=== PATIENT | female | born 1970 | race Caucasian/White ===

== ENCOUNTER 2022-08-19 14:06 | Outpatient (CLI) | payer OTHER, SELFPAY ==
--- NOTE | 2022-08-19 15:00 | CRLHL7_ITS ---
For Patients: As a result of the Century Cures Act, medical imaging exams and procedure reports are released immediately into your electronic medical record. You may view this report before your referring provider. If you have questions, please contact your health care provider. INDICATION: Pelvic mass. TECHNIQUE: CT abdomen and pelvis acquired with intravenous contrast, 81 mL of Isovue 370. Coronal and sagittal reformats. COMPARISON: None available. FINDINGS: The imaged lower chest appears unremarkable. - Normal liver contour. No suspicious hepatic lesion. The portal veins are patent. No biliary dilatation. The gallbladder, pancreas, spleen, and adrenals are unremarkable. - Symmetric renal enhancement. No hydronephrosis bilaterally. Unremarkable urinary bladder. Retroflexed uterus containing a heterogeneous noncalcified fundal mass measuring up to 8.5 cm (series 5, image 56). - Mild colonic diverticulosis without acute inflammatory changes. Nondilated small bowel. Normal appendix. - No free air, free fluid, focal collection, or lymphadenopathy. Normal caliber abdominal aorta. No suspicious osseous lesion. IMPRESSION: 1. Retroverted uterus containing a heterogeneous noncalcified 8.5 cm fundal mass, most likely a large fibroid. 2. No lymphadenopathy or acute findings. Please note that all CT scans at this facility use dose modulation, iterative reconstruction, and/or weight-based dosing when appropriate to reduce radiation dose to as low as reasonably achievable. Dictated by Jose Toro MD @ 08/21/2022 1:16:38 PM (Electronically Signed)
--- NOTE | 2022-08-19 16:00 | CRLHL7_ITS ---
For Patients: As a result of the Century Cures Act, medical imaging exams and procedure reports are released immediately into your electronic medical record. You may view this report before your referring provider. If you have questions, please contact your health care provider. INDICATION: Known fibroids. Increased pelvic pressure COMPARISON: CT 08/19/2022 TECHNIQUE: 2D hahn scale and color Doppler images were acquired of the pelvis using a transabdominal and transvaginal approach. FINDINGS: There is a large hypoechoic fibroid involving the right upper uterus which displaces the endometrium to the left. This fibroid distorts the contour of the uterus and measures 6.8 x 5.1 x 6.5 cm. A smaller right-sided lower uterine segment fibroid is present measuring 1.7 x 1.1 x 1.8 cm. Uterus measures 11.7 cm in length by 8.2 cm in AP diameter by 8.9 cm in transverse dimension. The endometrial lining measures 4 millimeters. The ovaries are not visualized. There are no suspicious fluid collections within the cul-de-sac. IMPRESSION: Large right-sided fibroid measuring 6.8 cm. This displaces the endometrial stripe to the left. Smaller right-sided lower uterine segment fibroid measuring 1.8 cm. Dictated by Jordan Fernandez MD @ 08/22/2022 10:46:45 AM (Electronically Signed)
== END 2022-08-19 14:07 | disposition home or self-care (01) ==
PROVIDERS: PCP Family Medicine; Visit Provider Obstetrics & Gynecology
DX: R19.00 Intra-abdominal and pelvic swelling, mass and lump, unspecified site (principal); D25.9 Leiomyoma of uterus, unspecified
CPT/HCPCS: 74177; 76830; 76856; Q9967

== ENCOUNTER 2022-10-20 07:06 | Inpatient (IN) | payer OTHER, SELFPAY ==
[2022-10-20] VITALS (32 sets, daily range): BP systolic 92–146; BP diastolic 53–97; PULSE 44–81; RESP 12–23; TEMP 35.5–37.4; O2SAT 91–100; BMI 28.3
[2022-10-20] MEDS: LACTATED RINGERS 1000 ML 1,000 ML 100 ML IV ×3 (07:25→11:30)
[2022-10-20] MEDS: SODIUM CHLORIDE 0.9 % (FLUSH) 10 ML SYRINGE IVF (07:25)
[2022-10-20 07:44] LABS: Ur HCG Qualitative* Negative (Negative)
[2022-10-20 07:47] LABS: Hemoglobin* 13.5 gm/dL (12.0-16.0)
[2022-10-20 08:04] LABS: Creatinine* 0.8 mg/dL (0.5-1.5); Est. Creatinine Clearance* 69.42; Estimated Glomerular Filt Rate 88 ml/min
--- NOTE | 2022-10-20 08:31 | W.ANESCHARGE ---
Anesthesia Charges Start Date/Time Anesthesia Start Date: 10/20/22 Anesthesia Start Time: 08:52 Stop Date/Time Anesthesia Stop Date: 10/20/22 Anesthesia Stop Time: 11:46
[2022-10-20] MEDS: CEFAZOLIN 2 GM INJ IVP (09:14)
--- NOTE | 2022-10-20 09:19 | P.NB_ITS ---
Nerve Block Nerve Block Time Seen by Provider: 09:08 Date Seen: 10/20/22 Type of block requested by surgeon for post-operative analgesia: TAP Side: bilateral Time out performed: Yes Verification of patient name: Yes Verification of date of : Yes Site marking: site marked Name of person performing procedure: Sanjay Darling, if any: Tj Continuous monitoring Was continuous monitoring of O2 sat, B/P, cardiac catheterization technologist, recorded every 15 minutes?: Yes Procedure Checklist: sterile prep, needles and gloves Ultrasound guided. Images saved: Yes Medications given in 5ml increments after negative aspiration: Marcaine %: 0.25 mL: 30 Needle gauge: 20 and Exparel mL: 10 Patient tolerated procedure well: Yes Additional comments: Needle noted adjacent to nerve Block Charges Block Charge (with Pro Fee): TAP Bilateral Use of Ultrasound Machine for Block: Yes- US Guidance/pain block
--- NOTE | 2022-10-20 11:40 | PM.GYNPRHY ---
Procedure Type of Hysterectomy: Total Abdominal Pre-op/Post-op diagnoses: Pre-Op/Post-Op Diagnoses Operation Date: 10/20/22 08:40 <No data on this case meets the specified criteria> Procedure: Procedures Operation Date: 10/20/22 08:40 Actual Procedure Side Surgeon p Open Abdominal Hysterectomy, Bilateral Salpingectomy,cystoscopy Yeny Stevens MD Spool Maker: Heide Mondragon Estimated blood loss (mL): 50 Anesthesia type: General Complications: none Fluids: crystalloid Fluid amount (mL): 2,000 Urine output (mL): 400 Weight of Uterus: 329 lb Specimen: uterus, left tube and right tube Disposition: PACU Narrative: DATE: 10/20/2022 PREOPERATIVE DIAGNOSIS: 52-year-old with known large fibroid uterus causing pelvic pain POSTOPERATIVE DIAGNOSIS: Same. NAME OF PROCEDURE: Total abdominal hysterectomy. Bilateral salpingectomies. SURGEON: Yeny Stevens MD MANAGER OF APPLICATIONS DEVELOPMENT: Heide Mondragon MD. ANESTHESIA: General endotracheal COMPLICATIONS: None ESTIMATED BLOOD LOSS: 50 ml URINE OUTPUT: 400 mL clear urine at the end of the procedure IV FLUID: 2000 mL DRAINS: Eason to gravity. FINDINGS: Filmy adhesions of peritoneum to the rectus fascia. Fibroid uterus noted. Adhesions of the bladder to being lower uterine segment. Normal bilateral fallopian tubes and ovaries. Normal appendix noted. PROCEDURE: After obtaining informed consent, the patient was taken to the operating room where general anesthesia was obtained without difficulty. She was prepared and draped in the normal sterile fashion in the dorsal supine position. A Eason catheter was inserted sterilely into the bladder. A midline vertical incision was made with a scalpel. This is the same incision as her previous delivery. This incision was carried down to the underlying layer of fascia with the Bovie. The fascia was incised in the midline and the incision extended laterally. The superior and inferior aspects of the fascial incision were grasped with Venkata clamps and the underlying rectus muscles dissected off sharply. The rectus muscles were in the midline. The underlying peritoneum was identified and entered sharply with Metzenbaum scissors. The peritoneal incision was extended superiorly and inferiorly with good visualization of the bladder. The patient was placed in some mild Trendelenburg positioning. The bowels were packed cephalad using a large moistened laparotomy sponge. The Khalif O retractor was placed in the incision. This provided excellent visualization of the pelvis. The pelvis was inspected with the findings noted above. Bilateral salpingectomy was performed 1st with the Impact LigaSure. [place] clamps were placed at the cornua bilaterally for traction. Both ureters were identified along their courses within the pelvic sidewall by palpation, patient body habitus made limited visualization. The right round ligament was doubly clamped with Venkata clamps, transected, and suture ligated with 0 Vicryl. The anterior leaf of the broad ligament was opened to the midline from the right side. Down to the level of the cervix. The right ovarian ligament was then isolated, clamped across with 2 Priscila clamps, transected, and doubly suture ligated with 0 Vicryl. Hemostasis was observed. The uterine vessels were skeletonized on the left side. The vessels were clamped across with a Priscila and a straight clamp, transected, and suture ligated. Excellent hemostasis was obtained. Attention was then turned to the right side. The left round ligament was clamped with 2 Venkata clamps, transected, and suture ligated with 0-Vicryl. The anterior leaf of the broad ligament was opened from the left side to the midline. The bladder flap was then created bluntly. The bladder was further pushed caudally with sharp and blunt dissection. The left ovarian ligament was clamped with 2 Priscila clamps, transected, and doubly suture ligated with 0-Vicryl. Hemostasis was visualized. The left uterine vessels were skeletonized and then clamped across with Priscila clamps, transected, and suture ligated. Excellent hemostasis was obtained. The remaining cardinal and uterosacral ligament attachments on both sides were clamped with straight Priscila clamps adjacent to the lower uterine segment and cervix, transected and suture ligated with 0 Vicryl. Excellent hemostasis was obtained. Two Priscila clamps were placed across the vaginal cuff angles. The uterus with attached cervix was then transected and passed off the field. The vaginal cuff angles were fixed with Priscila stitches of 0 Vicryl. The intervening vaginal cuff was closed with [id number] sutures of 0 Vicryl. The abdomen and pelvis were then copiously irrigated. Small bleeding vessels were isolated with DeBakey clamps and cauterized for hemostasis. All laparotomy sponges and instruments were then removed. The subfascial tissues were carefully inspected and hemostasis assured. The fascia was re-approximated in a running fashion with an 0 PDS suture. The subcutaneous tissues were copiously irrigated and hemostasis assured. The subcutaneous adipose layer was re-approximated in 1 layers 3-0 Vicryl in a running manner. The skin was closed in a subcuticular fashion with 4-0 Monocryl. A silver dressing was applied. A diagnostic cystoscopy was performed using normal saline as the insufflation medium. The dome of the bladder was noted to be without injury and no evidence of any sutures from the vaginal cuff causing injury. Normal urine flow was noted through both ureteral orifices. Fluorescein IV was used to visualize the urine more easily. The Eason catheter was then replaced. The patient tolerated the procedure well. Sponge, lap, needle, instrument counts were reported as correct x2. The patient was taken to recovery room awake and in stable condition. She received 2 g of IV Ancef preoperatively. The uterus was weighed at the conclusion of the procedure, weight was 329 g in the operating room. PATHOLOGY SPECIMEN(S): Uterus, cervix, left fallopian tube, right fallopian tubes.
--- NOTE | 2022-10-20 11:45 | W.ANESCHARGE ---
Anesthesia Charges Start Date/Time Anesthesia Start Date: 10/20/22 Anesthesia Start Time: 08:52 Stop Date/Time Anesthesia Stop Date: 10/20/22 Anesthesia Stop Time: 11:46
[2022-10-20] MEDS: ONDANSETRON 2 MG/ML inj 4 MG IVP (12:06)
[2022-10-20] MEDS: fentaNYL 100 MCG/2 ML inj 50 MCG IVP (12:23)
--- NOTE | 2022-10-20 12:59 | SUR.PHASEI ---
patient met discharge criteria per anesthesia
[2022-10-20] MEDS: LACTATED RINGERS 1000 ML 1,000 ML 35 ML IV (13:15)
[2022-10-20] MEDS: KETOROLAC 30 MG/ML inj IVP ×2 (14:33→20:40)
[2022-10-20] MEDS: METOCLOPRAMIDE HCL 5 MG/ML INJ 10 MG IVP (14:47)
[2022-10-20] MEDS: HYDROmorphone 0.5 mg/0.5 ml inj IVP (15:42)
[2022-10-20] MEDS: LACTATED RINGERS 1000 ML 1,000 ML 125 ML IV (18:06)
[2022-10-20] MEDS: ACETAMINOPHEN 325 MG TABLET 650 MG PO (19:34)
[2022-10-20] MEDS: SIMETHICONE 80 MG TAB.CHEW 160 MG PO (22:51)
[2022-10-21 00:43] VITALS: BP 113/67; PULSE 69; RESP 16; TEMP 37.2; O2SAT 94
[2022-10-21 01:55] VITALS: BP 116/74; PULSE 68; RESP 16; TEMP 37.5; O2SAT 96
[2022-10-21 02:45] VITALS: BP 119/75; PULSE 67; RESP 16; TEMP 37.4; O2SAT 95
[2022-10-21] MEDS: KETOROLAC 30 MG/ML inj IVP ×2 (02:46→08:37)
[2022-10-21 05:23] LABS: Hemoglobin* 12.9 gm/dL (12.0-16.0)
[2022-10-21 05:39] LABS: Creatinine* 0.7 mg/dL (0.5-1.5); Est. Creatinine Clearance* 79.34; Estimated Glomerular Filt Rate 103 ml/min
[2022-10-21 09:59] VITALS: BP 118/77; PULSE 85; RESP 18; TEMP 37.3
--- NOTE | 2022-10-21 12:52 | P.DS_ITS ---
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 Indication for surgery: Symptomatic fibroid uterus causing abnormal uterine bleeding and constipation. Intraoperative findings were notable for filmy adhesions of peritoneum to the rectus fascia.? Fibroid uterus noted.? Adhesions of the bladder to being lower uterine segment.? Normal bilateral fallopian tubes and ovaries.? Normal appendix noted. She had an uncomplicated surgery. Postoperative course has been uneventful. Vitals have been stable. She has remained afebrile. Hgb 13.5--> 12.9. Today, on postoperative day 1. she reports the pain is well controlled. She has been able to ambulate without difficulty. She is tolerating regular diet. She is passing flatus. Gonzalez catheter has been removed, and she is voiding without difficulty. Time Spent with Patient Time attestation: Total time spent providing and/or coordinating discharge services: Time spent: Less than 30 minutes HOUSEKEEPER/LAUNDRY ASSISTANT - Exam Physical Exam: Vital signs: Temp Pulse Resp BP Pulse Ox O2 Del Method O2 Flow Rate 99.2 F 85 18 118/77 95 Room Air 0.5 10/21/22 09:59 10/21/22 09:59 10/21/22 09:59 10/21/22 09:59 10/21/22 02:45 10/21/22 02:45 10/20/22 15:54 Narrative: Physical exam: General: No acute distress. On chair Psych: Alert and oriented x3, full affect HEENT: Normocephalic, atraumatic Lungs: Unlabored breathing Abdomen: Abdominal dressing in place with with no signs of bleeding or surrounding erythema. Soft, appropriate tenderness on palpation, no rebound, or guarding, no masses. Skin: No lesions or rashes Lower extremities: No edema or erythema Pelvic exam: Deferred. Report no vaginal bleeding. HOUSEKEEPER/LAUNDRY ASSISTANT - DS: Data Data Completed and Pending Labs on day of discharge: Labs from last 24 hours 10/21/22 05:15 Hgb 12.9 Creatinine 0.7 Estimated Creat Clear 79.34 Estimated GFR 103 Procedures Procedures: Procedures Operation Date: 10/20/22 08:40 Actual Procedure Side Surgeon p Open Abdominal Hysterectomy, Bilateral Salpingectomy,cystoscopy Yeny Stevens MD Complications: none Discharge Plan Discharge Disposition: Home, Self-Care Date of Admission: 10/20/22 07:06 Attending Provider on Discharge: Yeny Stevens MD Primary Care Provider: Leonora Madison Condition: Stable Anticipated Discharge Date/Time: 10/21/22 12:44 Discharge Medications: New acetaminophen 325 mg Tablet 650 mg PO Q4H PRN (Reason: minor pain) 30 Days Qty: 120 0RF docusate sodium 100 mg Capsule 100 mg PO BID PRN (Reason: Constipation) 30 Days Qty: 60 0RF ibuprofen 600 mg Tablet 600 mg PO Q6H 30 Days Qty: 120 0RF simethicone 80 mg Tablet,Chewable 160 mg PO Q4H PRN (Reason: gas) 30 Days Qty: 60 0RF oxycodone 5 mg Tablet 5 mg PO Q4H PRN (Reason: Moderate Pain) 14 Days Qty: 20 0RF No Action No Known Home Medications Discharge Orders: Discharge Order (Routine); Ordered 10/21/22 Ordered By: Yeny Stevens Patient Education: Hysterectomy (DC) Follow Up Appointments: Leonora Madison MD [Primary Care Provider] - Yeny Stevens MD [Staff Physician] - Forms: [facility] Info Instructions Discharge Comments: Total Abdominal Hysterectomy POSTOPERATIVE INSTRUCTIONS ACTIVITY No heavy lifting/pushing/pulling for 4-6 weeks. Do not lift anything more than about 5-10 lbs (such as laundry, groceries, children, pets), vacuum, push heavy doors or grocery carts, etc. You may climb stairs as tolerated. Do not put anything in the vagina for 6-8 weeks after surgery unless otherwise instructed by your doctor (including tampons, douching, sexual intercourse, etc). No driving for about 2 weeks after surgery, while you are taking narcotic pain medication, or until you feel that you are ready. Practice checking your blind spot and stepping hard on the brake. Avoid sitting or lying in bed for more than 2 hours at a time while you are awake to reduce your risk of blood clots. You may return to work when directed by your physician. Please contact your doctor if you need any return to work letters or medical leave paperwork to be completed. WOUND CARE You will have one large incision on your abdomen. There will be dissolvable stitches under your skin that do not need to be removed. You can remove your dressing after 7 days or sooner if the seal is broken. Shower daily after surgery. Clean your incision with mild antibacterial soap and water. Pat your incision dry with a clean towel. No tub baths until wound is completely healed. Wash your hands frequently, especially before touching your incision, changing any dressings, after using the restroom, and before eating. PAIN MANAGEMENT Take your oral pain medication as needed. You should be taking Ibuprofen 600mg every 6 hours with 1 gram of Tylenol every 6 hours. You can take these together every six hours or alternate them every 3 hours. You should then take the oxycodone as needed if you have breakthrough pain on top of the Tylenol and Ibuprofen. Some pain medications can cause constipation so you should take a stool softener (i.e. colace) while you are on these medications. You may also take milk of magnesia or Miralax for constipation. WHAT TO EXPECT AT HOME Recovery from surgery is generally 4-6 weeks, but sometimes longer for more strenuous activity. It is normal to be very tired during this time. It is normal to have some drainage or a small amount of vaginal bleeding after surgery which may last up to 6 weeks. You may go home with a gonzalez catheter in your bladder. You will need to follow up for a nurse visit in 7-10 days for removal. You will most likely experience gas pain, abdominal swelling, or shoulder pain for 24-72 hours after surgery. This is from the carbon dioxide gas put into your abdomen to better visualize your organs. A warm shower, heating pad, and/or walking may help. WHEN TO CALL YOUR DOCTOR: Fever (>100.4?F or 38.0?C) or chills. Incision problems such as redness, warmth, swelling, or foul smelling drainage. Severe nausea or persistent vomiting. Bright red vaginal bleeding (soaking >1 pad/hour) or foul smelling vaginal drainage. Severe pain not relieved with pain medication. Pain and swelling in your legs, especially if it is only on one side and not the other. Pain with urination, cloudy urine, or foul smelling urine. Or if you have any other problems or questions. CALL 911 OR GO TO THE EMERGENCY ROOM IF YOU HAVE: Any shortness of breath, difficulty breathing, or chest pain.
[2022-10-21 13:15] VITALS: BP 130/80; PULSE 81; RESP 18; TEMP 36.8
== END 2022-10-21 13:20 | disposition home or self-care (01) | DRG 743 ==
PROVIDERS: Admitting Provider Obstetrics & Gynecology; PCP Family Medicine; Visit Provider Obstetrics & Gynecology
PROC: 0UT94ZZ Resection of Uterus, Percutaneous Endoscopic Approach (ICD-10-PCS; CPT 52000; principal; 2022-10-20 08:30)
DX: D25.9 Leiomyoma of uterus, unspecified (principal); R10.2 Pelvic and perineal pain; N93.8 Other specified abnormal uterine and vaginal bleeding; K59.00 Constipation, unspecified; N73.6 Female pelvic peritoneal adhesions (postinfective)
CPT/HCPCS: 00840; 36415; 76942; 81025; 82565; 85018; 86850; 86900; 86901; A9270; C9290; J0131; J0330; J0690; J1100; J1170; J1885; J2250; J2405; J2704; J2765; J3010; J3475; J3490; J7120

== ENCOUNTER 2024-02-29 08:30 | Outpatient (CLI) | payer OTHER, SELFPAY ==
--- OUTSIDE RECORDS SUMMARY | 2024-03-02 18:41 | XMS_ITS | Clinical Summary ---
Author Organization [employer] Address [place], [place] [address] Care Team Providers Care Fire Manager Name Role Phone Leonora Madison MD Primary Care Provide r Allergies No known active allergies Medications No known medications Active Problems Problem Noted Date Diagnosed Date Pap smear for cervical cancer screening 06/17/20 21 Overview: 06/2021 NIL/HPV negative Plan: Pap/HPV due 06/2026 Malignant melanoma of arm 05/09/2014 Immunizations Name Administration Dates Next Due Hepatitis B (Adult) 11/13/1992,05/19/1992,1991 Tdap 05/09/2014,07/10/2008 Family History Medical History Relation Name Comments Cancer Father melanoma Heart Disease Father Hyperlipidemia Father Cancer Mother melanoma Cancer-breast Mother Cancer-colon No Family History Cancer-prostate No Family History Relation Name Status Comments Father Mother Social History Tobacco Use Types Packs/Day Years Used Date Smoking Tobacco: Never Smokeless Tobacco: Never Tobacco Cessation:Counseling Given: Yes Alcohol Use Standard Drinks/Week Comments Yes 0 (1 standard drink = 0.6 oz pur e alcohol) not weekly PHQ-2 Answer Date Recorded PHQ-2 TOTAL SCORE 0 09/30/2022 Social Connections Answer Date Recorded Frequency of Communication with Friends and Fami ly Not on file 07/06/2021 Financial Resource Strain Answer Date R ecorded Difficulty of Paying Living Expenses Not on file 07/06/2021 Difficulty of Paying Living Expenses Not on file 07/06/2021 Sex and Gender Information Value Date Recorded Sex Assigned at Not on file Gender Identity Not on file Sexual Orientation Not on file Obstetrics History Para Term AB IAB SAB Ectopic Multiple Livin g Live Births 2 2 1 1 1 Date Outcome GA Total Labor Labor/2nd/3rd Weight Sex Type Anes PTL Nichole A1 A5 Name Clin Term Last Filed Vital Signs Vital Sign Reading Time Taken Comments Blood Pressure 126/87 09/30/2022 11:17 AM CDT Pulse 78 09/30/2022 11:17 AM CDT Temperature 39.1 ??C (102.3 ??F) 01/14/2011 11:28 AM CDT Respiratory Rate - - Oxygen Saturation 98% 09/30/2022 11:17 AM CDT Inhaled Oxygen Concentration - - Weight 74.7 kg (164 lb 9.6 oz) 09/30/2022 11:17 AM CDT Height 163.2 cm (5' 4.25) 09/30/2022 11:17 AM C DT Body Mass Index 28.03 09/30/2022 11:17 AM CDT Plan of Treatment Health Maintenance Due Date Last Done Comments HIV for age 15-65 09/26/1983 Hepatitis C screening for age 18-79 1986 Colonoscopy through age 75 2013 Zoster (shingles) series for age 50+ (1 of 2) 2018 Lipids for age 45-75 05/09/2019 05/09/2014 Mammogram for age 45-75 12/09/2020 12/10/19 20, 10/19/2018, 08/14/2017, Additional history exists COVID-19 vaccine series (2022- season) 2023 04/20/2021 BMI (ht and wt on same day) for age 18+ 10/01/2023 09/30/2022, 06/17/2021 Depression screening for age 12+ 10/01/2023 09/30/2022 Influenza for age 50-64 03/10/2024 Tetanus booster 05/09/2024 05/09/2014, 07/10/2008 Pap test for age 21-65 06/17/2026 , 06/17/2021, 05/09/2014 Tdap Completed 05/09/2014, 07/10/2008 Pneumococcal series for age 6-64 Aged Out No longer eligible based on patient's age to complete this topic Procedures Procedure Name Priority Date/Time Associated Diagnosis Comments HPV THIN PREP Routine 06/17/2021 10:30 AM VIOLIN REPAIRER Cervical cancer screening XR MAMMO BILAT SCREENING Routine 12/10/2019 11:52 AM CDT Visit for screening mammogram LIPID PANEL W REFLEX MEASURED LDL Routine 05/09/2014 12:02 PM CDT Screening, lipid from Last 3 Months or Most Recently Relevant to Health Maintenance Results * HPV HIGH RISK (06/17/2021 10:30 AM VIOLIN REPAIRER) TYPE 16 Negative Negative 06/21/2021 2:26 PM VIOLIN REPAIRER [facility] TYPE 18 Negative Negative 06/21/2021 2:26 PM VIOLIN REPAIRER [facility] OTHER HIGH RISK TYPES Negative Negative 06/21/2021 2:26 PM VIOLIN REPAIRER [facility] Other (Cervical) Non-Blood / Unknown 06/17/2021 10:30 AM VIOLIN REPAIRER 06/18/2021 8:02 AM VIOLIN REPAIRER Narrative [facility] - 06/21/2021 2:26 PM VIOLIN REPAIRER HPV types 16, 18, 31, 33, 35, 39, 45, 51, 52, 56, 58, 59, 66 and 68 DNA were undetectable or below the pre-set threshold. Methodology: [employer] 4800 HPV Test Leonora Madison MD [facility]OLOGY [facility] [address] [place] [address], * XR MAMMO BILAT SCREENING (12/10/2019 11:52 AM CDT) Anatomical Region Laterality Modality BREASTS, Breast Left, Breast Right Bilateral Mammography Impressions 12/10/2019 3:20 PM CDT ??There is no radiographic evidence for malignancy. ??Recommend annual mammograms. A lay language report of this examination will be provided to the patient. MAMMOGRAM ASSESSMENT: ??ACR 1 Negative Narrative 12/10/2019 3:20 PM CDT XR MAMMO BILAT SCREENING [[id number]] CLINICAL HISTORY: ??This is an asymptomatic 49 y.o. patient. INDICATION FOR EXAM: Mammogram Screening. TECHNIQUE: CC & MLO views were obtained. ??This digital study was evaluated with the assistance of Computer-Aided Detection. COMPARISON FILM: Yes 10/19/18 [facility] 08/14/17 [facility] FINDINGS: ??Mammographically, the breast tissue is heterogeneously dense, which could obscure detection of small masses. There are no dominant masses, suspicious micro calcifications or areas of architectural distortion. Leonora Madison MD MAMMO * (ABNORMAL) LIPID PANEL W REFLEX MEASURED LDL (05/09/2014 12:02 PM CDT) CHOLESTEROL,TOTAL 218(H) 100 - 199 mg/dL 05/09/2014 12:40 PM CDT [facility] TRIGLYCERIDES 100 <150 mg/dL 05/09/2014 12:40 PM CDT [facility] HDL CHOLESTEROL 59 >40 mg/dL 4 12:40 PM CDT [facility] NON-HDL CHOLESTEROL 159(H) <145 mg/dl 05/09/2014 12:40 PM CDT [facility] CHOL/HDL RATIO 3.69 <4.50 05/09/2014 12:40 PM CDT [facility] LDL CHOLESTEROL 139(H) <=130 mg/dL 05/09/2014 12:40 PM CDT [facility] PATIENT STATUS FASTING 05/09/2014 12:40 PM CDT [facility] Blood specimen (specimen) BLOOD SPECIMEN / Unknown Venipuncture / Unknown 05/09/2014 12:02 PM CDT 05/09/2014 12:02 PM CDT Leonora Madison MD CHEMISTRY [facility] [address] [place] [address], from Last 3 Months or Most Recently Relevant to Health Maintenance Care Teams Fire Manager Relationship Specialty Start Date End Date Leonora Madison MD [address] [place] [address] PCP - General 11/24/05
== END 2024-02-29 08:31 | disposition home or self-care (01) ==
LOC: NFLDREF 03-02 18:40
PROVIDERS: PCP Family Medicine; Referring Provider Family Medicine; Visit Provider Obstetrics & Gynecology
DX: Z00.00 Encounter for general adult medical examination without abnormal findings (principal); Z13.6 Encounter for screening for cardiovascular disorders
CPT/HCPCS: 80061

== ENCOUNTER 2024-04-23 16:51 | Outpatient (CLI) | payer OTHER, SELFPAY ==
--- OUTSIDE RECORDS SUMMARY | 2024-04-23 16:54 | XMS_ITS | Clinical Summary ---
Author Organization [facility] Address [place], [place] [address] Care Team Providers Care Website Programmer Name Role Phone Leonora Madison MD Primary Care Provide r Allergies No known active allergies Medications No known medications Active Problems Problem Noted Date Diagnosed Date Pap smear for cervical cancer screening 06/17/20 21 Overview (07/19/2021): 06/2021 NIL/HPV negative Plan: Pap/HPV due 06/2026 [...] 12/10/19 20, 10/19/2018, 08/14/2017, Additional history exists BMI (ht and wt on same day) for age 18+ 10/01/2023 09/30/2022, 06/17/2021 Depression screening for age 12+ 10/01/2023 09/30/2022 COVID-19 vaccine series ( season) 2024 04/20/2021 Influenza for age 50-64 03/10/2024 Tetanus booster 05/09/2024 05/09/2014, 07/10/2008 Pap test for age 21-65 06/17/2026 , 06/17/2021, 05/09/2014 Tdap Completed 05/09/2014, 07/10/2008 Pneumococcal series for age 6-64 Aged Out No longer eligible based on patient's age to complete this topic Procedures Procedure Name Priority Date/Time Associated Diagnosis Comments HPV HIGH RISK Routine 06/17/2021 10:30 AM 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 REVIEWER Cervical cancer screening XR MAMMO BILAT SCREENING Routine 12/10/2019 11:52 AM CDT Visit for screening mammogram LIPID PANEL W REFLEX MEASURED LDL Routine 05/09/2014 12:02 PM CDT Screening, lipid from Last 3 Months or Most Recently Relevant to Health Maintenance Results * HPV HIGH RISK (06/17/2021 10:30 AM UTILIZATION REVIEWER) TYPE 16 Negative Negative 06/21/2021 2:26 PM UTILIZATION REVIEWER [facility] TYPE 18 Negative Negative 06/21/2021 2:26 PM UTILIZATION REVIEWER [facility] OTHER HIGH RISK TYPES Negative Negative 06/21/2021 2:26 PM UTILIZATION REVIEWER [facility] Other (Cervical) Non-Blood / Unknown 06/17/2021 10:30 AM UTILIZATION REVIEWER 06/18/2021 8:02 AM UTILIZATION REVIEWER Narrative [facility] - 06/21/2021 2:26 PM UTILIZATION REVIEWER HPV types 16, 18, 31, 33, 35, 39, 45, 51, 52, 56, 58, 59, 66 and 68 DNA were undetectable or below the pre-set threshold. Methodology: Tano Nando 4800 HPV Test Leonora Madison MD MICROBIOLOGY [facility] [address] [place] [address], * XR MAMMO BILAT SCREENING (12/10/2019 11:52 AM CDT) Anatomical Region Laterality Modality BREASTS, Breast Left, Breast Right Bilateral Mammography Impressions 12/10/2019 3:20 PM CDT ??There is no radiographic evidence for malignancy. ??Recommend annual mammograms. A lay language report of this examination will be provided to the patient. MAMMOGRAM ASSESSMENT: ??ACR 1 Negative Narrative 12/10/2019 3:20 PM CDT XR MAMMO BILAT SCREENING [[id number]] CLINICAL HISTORY: ??This is an asymptomatic 49 y.o. patient. INDICATION FOR EXAM: Mammogram Screening. TECHNIQUE: CC & MLO views were obtained. ??This digital study was evaluated with the assistance of Computer-Aided Detection. COMPARISON FILM: Yes 10/19/18 [facility] 08/14/17 [facility] FINDINGS: ??Mammographically, the breast tissue is heterogeneously dense, which could obscure detection of small masses. There are no dominant masses, suspicious micro calcifications or areas of architectural distortion. Leonora Madison MD MAMMO * (ABNORMAL) LIPID PANEL W REFLEX MEASURED LDL (05/09/2014 12:02 PM CDT) CHOLESTEROL,TOTAL 218(H) 100 - 199 mg/dL 05/09/2014 12:40 PM CDT [facility] TRIGLYCERIDES 100 <150 mg/dL 05/09/2014 12:40 PM CDT [facility] HDL CHOLESTEROL 59 >40 mg/dL 4 12:40 PM CDT [facility] NON-HDL CHOLESTEROL 159(H) <145 mg/dl 05/09/2014 12:40 PM CDT [facility] CHOL/HDL RATIO 3.69 <4.50 05/09/2014 12:40 PM CDT [facility] LDL CHOLESTEROL 139(H) <=130 mg/dL 05/09/2014 12:40 PM CDT [facility] PATIENT STATUS FASTING 05/09/2014 12:40 PM CDT [facility] Blood specimen (specimen) BLOOD SPECIMEN / Unknown Venipuncture / Unknown 05/09/2014 12:02 PM CDT 05/09/2014 12:02 PM CDT Leonora Madison MD CHEMISTRY [facility] [address] [place] [address], [place] [phone] from Last 3 Months or Most Recently Relevant to Health Maintenance Care Teams Website Programmer Relationship Specialty Start Date End Date Leonora Madison MD [address] [place] [address] [facility] - General 11/24/05
--- NOTE | 2024-04-23 17:00 | CRLHL7_ITS ---
For Patients: As a result of the Century Cures Act, medical imaging exams and procedure reports are released immediately into your electronic medical record. You may view this report before your referring provider. If you have questions, please contact your health care provider. BILATERAL SCREENING MAMMOGRAM WITH COMPUTER-AIDED DETECTION AND TOMOSYNTHESIS TECHNIQUE: CC and MLO views were obtained. These mammographic images have been obtained using full-field digital technique. These mammographic images were interpreted with the benefit of computer-aided detection. Breast Tomosynthesis was used in this interpretation. COMPARISON FILM: 12/10/19, 10/19/18, 05/16/14. FINDINGS: There are scattered areas of fibroglandular density. IMPRESSION: There is no radiographic evidence for malignancy. ASSESSMENT: BI-RADS Category 1: Negative RECOMMENDATION: Routine screening mammogram in 1 year. A lay language report of this examination will be provided to the patient. Jordan Fernandez M.D. Diagnostic Radiologist [email or web address] SP/Dictated by: Jordan Fernandez MD @ 04/30/2024 11:58:00 AM (Electronically Signed)
== END 2024-04-23 16:52 | disposition home or self-care (01) ==
PROVIDERS: PCP Family Medicine; Visit Provider Obstetrics & Gynecology
DX: Z12.31 Encounter for screening mammogram for malignant neoplasm of breast (principal)
CPT/HCPCS: 77063; 77067

== ENCOUNTER 2024-05-13 06:30 | Outpatient (CLI) | payer OTHER, SELFPAY ==
--- OUTSIDE RECORDS SUMMARY | 2024-05-13 06:32 | XMS_ITS | Clinical Summary ---
Author Organization [email or web address] [facility] Address [place], [place] [address] Care Team Providers Care Cable Television Access Coordinator Name Role Phone Leonora Madison MD Primary Care Provide r Allergies No known active allergies Medications No known medications Active Problems Problem Noted Date Diagnosed Date Pap smear for cervical cancer screening 06/17/20 21 Overview (07/19/2021): 06/2021 NIL/HPV negative Plan: Pap/HPV due 06/2026 Malignant melanoma of arm 05/09/2014 Encounters Date Type Department Care Team Description 04/23/2024 Orders Only [facility] Scanner 1 scan: (1-Ord) [facility], BILAT SCREENING WITH CAD AND SONIYA, 04/23/2024 from Last 3 Months Immunizations Name Administration Dates Next Due Hepatitis [...] 2018 Lipids for age 45-75 05/09/2019 05/09/2014 BMI (ht and wt on same day) for age 18+ 10/01/2023 09/30/2022, 06/17/2021 Depression screening for age 12+ 10/01/2023 09/30/2022 COVID-19 vaccine series ( season) 2024 04/20/2021 Influenza for age 50-64 03/10/2024 Tetanus booster 05/09/2024 05/09/2014, 07/10/2008 Mammogram for age 45-75 04/23/2025 04/23/20 24, 12/10/2019, 10/19/2018, Additional history exists Pap test for age 21-65 06/17/2026 , 06/17/2021, 05/09/2014 Tdap Completed 05/09/2014, 07/10/2008 Pneumococcal series for age 6-64 Aged Out No longer eligible based on patient's age to complete this topic Procedures Procedure Name Priority Date/Time Associated Diagnosis Comments SCAN-MAMMOGRAPHY REPORT 04/23/2024 12:00 AM CDT HPV HIGH RISK Routine 06/17/2021 10:30 AM 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 Cervical cancer screening LIPID PANEL W REFLEX MEASURED LDL Routine 05/09/2014 12:02 PM CDT Screening, lipid from Last 3 Months or Most Recently Relevant to Health Maintenance Results * SCAN-MAMMOGRAPHY REPORT (04/23/2024 12:00 AM CDT) Anatomical Region Laterality Modality Other Scanner OTHER * HPV HIGH RISK (06/17/2021 10:30 AM 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) TYPE 16 Negative Negative 06/21/2021 2:26 PM 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 [facility] TYPE 18 Negative Negative 06/21/2021 2:26 PM 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 [facility] OTHER HIGH RISK TYPES Negative Negative 06/21/2021 2:26 PM 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 [facility] Other (Cervical) Non-Blood / Unknown 06/17/2021 10:30 AM 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 06/18/2021 8:02 AM 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 Narrative [facility] - 06/21/2021 2:26 PM 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 HPV types 16, 18, 31, 33, 35, 39, 45, 51, 52, 56, 58, 59, 66 and 68 DNA were undetectable or below the pre-set threshold. Methodology: Tano Nando 4800 HPV Test Leonora Madison MD MICROBIOLOGY [facility] [address] [place] [address], [place] * (ABNORMAL) LIPID PANEL W REFLEX MEASURED LDL (05/09/2014 12:02 PM CDT) CHOLESTEROL,TOTAL 218(H) 100 - 199 mg/dL 05/09/2014 12:40 PM CDT [facility] TRIGLYCERIDES 100 <150 mg/dL 05/09/2014 12:40 PM CDT [facility] HDL CHOLESTEROL 59 >40 mg/dL 4 12:40 PM CDT [facility] NON-HDL CHOLESTEROL 159(H) <145 mg/dl 05/09/2014 12:40 PM CDT [facility] CHOL/HDL RATIO 3.69 <4.50 05/09/2014 12:40 PM CDT [facility] LDL CHOLESTEROL 139(H) <=130 mg/dL 05/09/2014 12:40 PM CDT [facility] PATIENT STATUS FASTING 05/09/2014 12:40 PM CDT [facility] Blood specimen (specimen) BLOOD SPECIMEN / Unknown Venipuncture / Unknown 05/09/2014 12:02 PM CDT 05/09/2014 12:02 PM CDT Leonora Madison MD CHEMISTRY [facility] [address] [place] [address], from Last 3 Months or Most Recently Relevant to Health Maintenance Care Teams Cable Television Access Coordinator Relationship Specialty Start Date End Date Leonora Madison MD [address] [place] [address] PCP - General 11/24/05
--- NOTE | 2024-05-13 08:01 | W.ANESCHARGE ---
Anesthesia Charges Start Date/Time Anesthesia Start Date: 05/13/24 Anesthesia Start Time: 07:25 Stop Date/Time Anesthesia Stop Date: 05/13/24 Anesthesia Stop Time: 07:58
--- NOTE | 2024-05-13 08:56 | W.ANESCHARGE ---
Anesthesia Charges Start Date/Time Anesthesia Start Date: 05/13/24 Anesthesia Start Time: 07:25 Stop Date/Time Anesthesia Stop Date: 05/13/24 Anesthesia Stop Time: 07:58
== END 2024-05-13 06:31 | disposition home or self-care (01) ==
PROVIDERS: PCP Family Medicine; Visit Provider Surgery
DX: Z12.11 Encounter for screening for malignant neoplasm of colon (principal); D12.8 Benign neoplasm of rectum; K57.30 Diverticulosis of large intestine without perforation or abscess without bleeding
CPT/HCPCS: 00811; 45385; 88305; J2704

== ENCOUNTER 2025-04-18 14:46 | Outpatient (CLI) | payer OTHER, SELFPAY ==
--- NOTE | 2025-04-18 15:00 | CRLHL7_ITS ---
For Patients: As a result of the Century Cures Act, medical imaging exams and procedure reports are released immediately into your electronic medical record. You may view this report before your referring provider. If you have questions, please contact your health care provider. INDICATION: Noninflammatory disorders of vagina. Evaluate for Cortes Duct Cyst. COMPARISON: 08/19/2022 TECHNIQUE: 2D hahn-scale and color Doppler images were acquired of the pelvis using a transabdominal and transvaginal approach. Transvaginal imaging performed to better visualize the endometrial stripe and ovaries. FINDINGS: The uterus is absent. The ovaries are not visualized due to overlying bowel gas. There are 3 circumscribed anechoic vaginal cysts, measuring 10 x 5 x 7 millimeters, 9 x 6 x 8 millimeters and 7 x 7 x 7 millimeters. IMPRESSION: Three vaginal cysts measure up to 1 cm. Dictated by Jordan Fernandez MD @ 04/18/2025 4:39:24 PM (Electronically Signed)
== END 2025-04-18 14:47 | disposition home or self-care (01) ==
LOC: US 14:46
PROVIDERS: PCP Family Medicine; Visit Provider Obstetrics & Gynecology
DX: N89.8 Other specified noninflammatory disorders of vagina (principal)
CPT/HCPCS: 76830; 76856

== ENCOUNTER 2025-05-06 17:14 | Outpatient (CLI) | payer OTHER, SELFPAY ==
--- NOTE | 2025-05-06 17:20 | CRLHL7_ITS ---
For Patients: As a result of the Century Cures Act, medical imaging exams and procedure reports are released immediately into your electronic medical record. You may view this report before your referring provider. If you have questions, please contact your health care provider. INDICATION: BILATERAL SCREENING MAMMOGRAM, ASYMPTOMATIC 54 Y/O FEMALE COMPARISON: 04/23/2024, 12/10/2019, 10/19/2018 TECHNIQUE: Digital mammogram in CC and MLO projections including computer-aided detection (CAD) and tomosynthesis. BREAST COMPOSITION: The breasts are heterogeneously dense, which may obscure small masses. FINDINGS: No suspicious findings. ASSESSMENT: BI-RADS 1 Negative RECOMMENDATION: Annual screening mammogram. A lay language report of this examination will be provided to the patient. Dictated by: Jordan Fernandez MD @ 05/07/2025 11:26:10 (Electronically Signed)
== END 2025-05-06 17:15 | disposition home or self-care (01) ==
LOC: MAMMO 17:15
PROVIDERS: PCP Family Medicine; Visit Provider Obstetrics & Gynecology
DX: Z12.31 Encounter for screening mammogram for malignant neoplasm of breast (principal); R92.333 Mammographic heterogeneous density, bilateral breasts
CPT/HCPCS: 77063; 77067